=== PATIENT | male | born 1945 | race Caucasian/White ===

== ENCOUNTER 2020-11-15 11:45 | Emergency (ER) | payer OTHER ==
[2020-11-15] MEDS ORDERED: SODIUM BICARBONATE 4.2% 5 MEQ/10 ML DISP.SYRIN IVPUSH ONE (12:02)
[2020-11-15] MEDS ORDERED: DEXTROSE 50%-WATER 25 GM/50 ML DISP.SYRIN ONE (12:07)
[2020-11-15 12:37] VITALS: BMI 27.8
[2020-11-15 13:42] VITALS: BP 0/0
[2020-11-15 14:08] VITALS: PULSE 32
== END 2020-11-15 12:25 | disposition expired ==
LOC: FER 11:53
DX: I46.9 Cardiac arrest, cause unspecified (principal)
CPT/HCPCS: 99291